=== PATIENT | female | born 1995 | race Caucasian/White ===

== ENCOUNTER 2018-06-08 23:57 | Outpatient (CLI) | payer OTHER ==
[~2018-06-08 23:57] MED LIST: DICLEGIS DR 101 EACH PO; ENDOCET 5-3251 EACH PO; IBUPROFEN800 MG PO; LABETALOL HCL200 MG PO
[2018-06-09 00:31] VITALS: BP 128/68
== END 2018-06-09 01:00 | disposition home or self-care (01) ==
LOC: LDRP-OP 23:57 → 2WEST 23:58 → LDRP-OP 09-04 13:17
DX: O36.8130 Decreased fetal movements, third trimester, not applicable or unspecified (principal); O24.410 Gestational diabetes mellitus in pregnancy, diet controlled; Z3A.32 32 weeks gestation of pregnancy
CPT/HCPCS: 59025; G0378